=== PATIENT | male | born 1985 | race Caucasian/White ===

== ENCOUNTER 2020-03-12 09:41 | Outpatient (REF) | payer OTHER, SELFPAY | END 2020-03-12 09:42 | disposition home or self-care (01) | LOC: HO.LAB 09:41 | PROVIDERS: Visit Provider Internal Medicine | DX: Z20.828 Contact with and (suspected) exposure to other viral communicable diseases (principal) | CPT/HCPCS: 87635 ==

== ENCOUNTER 2020-04-02 17:17 | Outpatient (REF) | payer OTHER, SELFPAY | END 2020-04-02 17:18 | disposition home or self-care (01) | LOC: HO.LAB 17:17 | PROVIDERS: Visit Provider Internal Medicine | DX: Z20.828 Contact with and (suspected) exposure to other viral communicable diseases (principal) | CPT/HCPCS: 87635 ==

== ENCOUNTER 2020-04-16 09:02 | Outpatient (REF) | payer OTHER, SELFPAY | END 2020-04-16 09:03 | disposition home or self-care (01) | LOC: HO.LAB 09:02 | PROVIDERS: Visit Provider Internal Medicine | DX: Z20.828 Contact with and (suspected) exposure to other viral communicable diseases (principal) | CPT/HCPCS: C9803; U0003 ==

== ENCOUNTER 2020-04-30 09:11 | Outpatient (REF) | payer OTHER, SELFPAY | END 2020-04-30 09:12 | disposition home or self-care (01) | LOC: HO.LAB 09:11 | PROVIDERS: Visit Provider Internal Medicine | DX: Z20.828 Contact with and (suspected) exposure to other viral communicable diseases (principal) | CPT/HCPCS: C9803; U0003 ==

== ENCOUNTER 2020-06-25 09:24 | Outpatient (REF) | payer OTHER, SELFPAY | END 2020-06-25 09:25 | disposition home or self-care (01) | LOC: HO.LAB 09:24 | PROVIDERS: Visit Provider Internal Medicine | DX: Z20.822 Contact with and (suspected) exposure to COVID-19 (principal) | CPT/HCPCS: 36415; C9803; U0003 ==

== ENCOUNTER 2020-10-22 12:15 | Emergency (ER) | payer OTHER, SELFPAY ==
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
[2020-10-22 12:19] VITALS: BP 161/84; PULSE 92; RESP 18; TEMP 36.4; O2SAT 97; BMI 34.4
[2020-10-22 13:02] LABS: MANUAL DIFF FLAG NO
[2020-10-22 13:05] LABS: Basophils Percent Auto 0.8 % (0-2); Eosinophils Absolute Auto 0.2 X10*3/uL (0.0-0.4); Eosinophils Percent Auto 4.5 % (0-4); Hematocrit 43.3 % (42-52); Hemoglobin 14.2 g/dl (14.0-18.0); Imm Gran Abs Auto 0.01 X10*3/uL (0.00-0.03); Imm Gran Pct Auto 0.2 % (0.0-0.4); Lymphocytes Absolute Auto 1.5 X10*3/uL (1.2-4.9); Lymphocytes Percent Auto 27.6 % (20-40); Mean Corpuscular HGB Conc 32.8 g/dl (31.0-36.0); Mean Corpuscular Hemoglobin 29.6 pg (27.0-33.0); Mean Corpuscular Volume 90.4 fL (80-98); Mean Platelet Volume 10.5 fL (9.4-12.4); Monocytes Absolute Auto 0.4 X10*3/uL (0.1-1.2); Monocytes Percent Auto 7.6 % (2-11); Neutrophils Absolute Auto 3.1 X10*3/uL (2.0-8.3); Neutrophils Percent Auto 59.3 % (45-73); Platelet Count 212 X10*3/uL (160-400); Red Blood Count 4.79 X10*6/uL (4.60-5.80); Red Cell Distribution Width 12.7 % (11.0-16.0); White Blood Count 5.3 X10*3/uL (4.8-10.8)
[2020-10-22 13:45] LABS: Alanine Aminotransferase 102 U/L (0-40); Albumin Level 4.4 g/dL (3.5-5.0); Alkaline Phosphatase 66 U/L (39-117); Anion Gap 12 (12-20); Aspartate Amino Transferase 52 U/L (5-37); Bilirubin Total 0.4 mg/dL (0.0-1.0); Blood Urea Nitrogen 16 mg/dL (9-16); Calcium 9.6 mg/dL (8.4-10.2); Carbon Dioxide 28 mmol/L (22-29); Chloride 107 mmol/L (96-108); Creatinine Clr Calc Pharmacy 142.6; Estimated Glomerular Filt Rate > 60; Glucose Random 92 mg/dL (60-115); Potassium 4.5 mmol/L (3.3-5.1); Sodium 142 mmol/L (135-145); Total Protein 7.9 g/dL (6.5-8.0)
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
[2020-10-22 15:43] VITALS: BP 125/79; PULSE 67; RESP 17; TEMP 36.4; O2SAT 99
[2020-10-22] MEDS: iohexoL 350 MG/ML 100 ML INFUS..BTL IV (15:57)
== END 2020-10-22 16:51 | disposition home or self-care (01) ==
PROVIDERS: Emergency Provider Emergency Medicine Emergency Medical Services
DX: M54.12 Radiculopathy, cervical region (principal); M54.2 Cervicalgia; G44.309 Post-traumatic headache, unspecified, not intractable; Z86.16 Personal history of COVID-19; Z79.899 Other long term (current) drug therapy
CPT/HCPCS: 36415; 70450; 70498; 72125; 80053; 85025; 99284; Q9967

== ENCOUNTER 2021-06-11 11:24 | Outpatient (REF) | payer OTHER, SELFPAY ==
[2021-06-11 16:17] LABS: Binax Internal Control QC Valid; Binax Now Covid-19 Ag Negative (Negative)
== END 2021-06-11 11:25 | disposition home or self-care (01) ==
LOC: HO.LAB 11:24
PROVIDERS: Visit Provider Internal Medicine
DX: Z20.822 Contact with and (suspected) exposure to COVID-19 (principal)
CPT/HCPCS: 36415; C9803

== ENCOUNTER 2021-08-13 09:45 | Emergency (ER) | payer OTHER, SELFPAY ==
[2021-08-13 09:58] VITALS: BP 139/92; PULSE 80; RESP 18; TEMP 36.6; O2SAT 95; BMI 33.0
--- NOTE | 2021-08-13 10:06 | ED.GENADULT ---
HPI - General Adult General Chief complaint: General Medical Stated complaint: sore throat Time Seen by Provider: 08/13/21 09:56 Source: patient Mode of arrival: ambulatory History of Present Illness HPI narrative: 36-year-old male with no significant past medical history presenting to the ED complaining of sore throat, rhinorrhea, nasal congestion, slight dry cough and mild headache from x4 days. Reports difficulty swallowing secondary to throat pain. Denies SOB, difficulty handling secretions, drooling, CP, ear pain Onset (ago): day(s) Related Data Previous Rx's Medication Instructions Recorded cyclobenzaprine 10 mg tablet 10 mg PO BEDTIME PRN 7 Days #7 tab 10/22/20 prednisone 20 mg tablet 60 mg PO DAILY 7 Days #21 tab 10/22/20 acetaminophen 500 mg tablet 500 mg PO Q6H PRN #20 tab 08/13/21 (Tylenol Extra Strength) amoxicillin 875 mg-potassium 1 tab PO BID 7 Days #14 tab 08/13/21 clavulanate 125 mg tablet ibuprofen 800 mg tablet 800 mg PO Q8H PRN #14 tab 08/13/21 Allergies Allergy/AdvReac Type Severity Reaction Status Date / Time No Known Allergies Allergy Verified 08/13/21 10:00 Review of Systems Review of Systems: Constitutional: No Fever, No Chills ENT/Mouth: No Ear Pain, + Nasal Congestion, No Sinus Pain, No Hoarseness, + sore throat, + Rhinorrhea, + Swallowing Difficulty Cardiovascular: No Chest Pain, No SOB Respiratory: + Cough, No Sputum, No Wheezing Gastrointestinal: No Nausea, No Vomiting, No Diarrhea, No Constipation, No Abdominal pain Genitourinary: No Dysuria, No Urgency, No Flank Pain Musculoskeletal: No joint pain, No Myalgias, No Joint Swelling Skin: No Skin Lesions, No rash Neuro: No Weakness, No Numbness, No Paresthesias Yes all other systems are reviewed and are negative [facility] Past Medical History Attestation statement: The following information was validated with the patient. Medical History No known health problems Social History Social History Advance Directives: No Advance Directives Information Provided: No Physical Exam ED Vital Signs: Vital Signs - 24 hr 08/13/21 09:58 Temperature 97.8 F Pulse Rate 80 Respiratory Rate 18 Blood Pressure 139/92 H Pulse Oximetry 95 BMI result Body Mass Index 33.0 Const General: cooperative, healthy appearing and no acute distress Orientation/consciousness: patient oriented x3 Limitations: no limitations HENMT Head: Yes normal to inspection Ears: hearing grossly normal bilaterally, TM's normal bilaterally and mastoids normal General nose exam: Normal external nose present Face and sinus: Yes normal facial exam Mouth: Normal oral and palatal mucosa present and moist mucous membranes Throat: Yes uvula midline, Yes abnormal tonsil (Bilateral tonsillar erythema and swelling 3+, no exudates), No uvula laterally displaced and No uvular edema Eyes General: appearance normal, both eyes and all related structures EOM: EOMs intact bilaterally Neck Neck: Yes normal visual inspection Resp Other: Talking in complete sentences, no respiratory distress Effort & Inspection: normal respiratory effort, not labored, no nasal flaring, no respiratory distress and no stridor Auscultation: clear to auscultation bilaterally Cardio Rate: regular rate Heart sounds: S1 normal heart sound present and S2 normal heart sound present Skin Rashes: no rashes Wounds: no wounds Neuro General: patient oriented x3 Gait exam (Neuro): Normal gait present Extrem General: Yes normal to inspection Course Course Course Narrative: -rapid strep positive >given 1st dose Augmentin in the ED -COVID-19 negative Discussed worrisome signs and symptoms and strict return precautions and needed close follow-up with PCP. Medical Decision Making MDM Narrative Medical decision making narrative: 36-year-old male with no significant past medical history presenting to the ED complaining of sore throat, rhinorrhea, nasal congestion, slight dry cough and mild headache from x4 days. On exam vital signs stable, NAD/nontoxic-appearing, talking in complete sentences, bilateral tonsillar swelling and erythema noted, no exudate, talking in complete sentences, in no respiratory distress. Concern for pharyngitis vs viral syndrome/COVID-19. 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 Plan: Rapid strep, COVID-19 testing, p.o. Decadron, ibuprofen Medical Records Medical records reviewed: Yes I reviewed the patient's medical records. Lab Data Lab results reviewed: Yes I reviewed the patient's lab results. Labs: Lab Results 03/10/22 03/10/22 Range/Units 10:11 10:11 COVID-19 (PATEL) Negative (Negative) COVID-19 Clin Com See Note S. pyogenes GrpA KEREN Positive A (Negative) Discharge Plan Discharge Clinical Impression: Acute streptococcal pharyngitis Patient Disposition: Home, Self-Care Instructions: Strep Throat (DC) Additional Instructions: You have strep throat. You tested negative for COVID-19 Augmentin is an antibiotic please take as prescribed. If you gargle with warm salt water this will help with her symptoms. In addition take Tylenol Motrin which will foot pain and swelling. You were given a dose of an oral steroid in the emergency department this will help with your pain and swelling. If symptoms persist or worsen, swelling becomes worse, you are unable to eat or drink, developed fever unresolved with medications, pain becomes unbearable please return to the ED Prescriptions: New ibuprofen 800 mg tablet 800 mg PO Q8H PRN (Reason: pain) Qty: 14 0RF acetaminophen [Tylenol Extra Strength] 500 mg tablet 500 mg PO Q6H PRN (Reason: pain or fever) Qty: 20 0RF amoxicillin-pot clavulanate 875-125 mg tablet 1 tab PO BID 7 Days Qty: 14 0RF No Action cyclobenzaprine 10 mg tablet 10 mg PO BEDTIME PRN (Reason: muscle pain or spasm) 7 Days Qty: 7 0RF prednisone 20 mg tablet 60 mg PO DAILY 7 Days Qty: 21 0RF Referrals: Physician,None [Primary Care Provider] - 3 days Stand Alone Forms: Work/School Release
[2021-08-13] MEDS: dexAMETHasone sod phosphate 10 MG/ML VIAL IVPUSH (10:16)
[2021-08-13] MEDS: Ibuprofen 800 MG TABLET PO (10:16)
[2021-08-13 10:23] LABS: Strep A Nucleic Acid Positive (Negative)
[2021-08-13] MEDS: Amoxicillin/Potassium Clav 875 MG TABLET PO (10:37)
[2021-08-13 10:38] LABS: COVID-19 Test Negative (Negative); IDNOW Serial# 55D5AD1C
== END 2021-08-13 10:52 | disposition home or self-care (01) ==
PROVIDERS: Physician Assistant; Emergency Provider Emergency Medicine
DX: J02.0 Streptococcal pharyngitis (principal); Z20.822 Contact with and (suspected) exposure to COVID-19
CPT/HCPCS: 87635; 87651; 99283; J1100